=== PATIENT | female | born 1970 | race Caucasian/White ===

== ENCOUNTER → 2016-05-31 | Outpatient (CLI) | payer OTHER ==
[~2016-05-31] MED LIST: ALB.5NB20 HHN; ALBU2.5V4 IH; ALBUTEROL; AMOX-97 PO; BUDE0.253 IH; BUDE10.22 IH; CLIN300C3 PO; HYDR-3720 PO; HYDR-700 PO; HYDR1TAB66 PO
--- NOTE | 2016-05-31 18:50 | Diagnostic Imaging Report ---
EXAM: Bilateral diagnostic mammogram. The current study was also evaluated with a Computer Aided Detection (CAD) system. INDICATION: Followup retroareolar right CC view asymmetry seen previously. COMPARISON: 09/14/2015 and 02/23/2015. FINDINGS: There is global asymmetry with more dense parenchyma in the left breast in the upper outer quadrant. This is stable from multiple prior exams. Stable benign-appearing calcifications are also noted. The previously seen asymmetry is not identified on the current exam, likely from prior summation artifact with no developing mass or suspicious calcification. IMPRESSION: No mammographic evidence of malignancy. Annual screening mammogram recommended. BI-RADS 2. ACR BI-RADS Category 2: Benign findings. Result letter will be mailed to the patient. Note: At least 10% of breast cancer is not imaged by mammography. Dictated by: Dictated on workstation # [id number]
== END ==
LOC: RAD 09:23
PROVIDERS: ATTEND Nurse Practitioner Family
DX: R92.8 Other abnormal and inconclusive findings on diagnostic imaging of breast (principal)

== ENCOUNTER 2021-10-04 21:07 | Emergency (ER) | payer OTHER ==
[~2021-10-04] VITALS: Ht 172.7 cm; Wt 106.3 kg
[2021-10-04] MEDS ORDERED: FAMOTIDINE 20MG/2ML IV (PEPCID) IV STA (22:03)
--- NOTE | 2021-10-04 22:12 | ED Abdominal Pain ---
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 Patient has a difficult time keeping food down. Pain is worse upon lying down at with movement. Denies diarrhea, chest pain, shortness of breath, fever, dysuria, hematuria hematemesis. No known sick contacts. Patient has been having some acid reflux and burping and she was started on omeprazole by her PCP Allergies and Home Medications Allergies Coded Allergies: No Known Drug Allergies (Unverified , 10/27/10) Patient Home Medication List Home Medication List Reviewed: Yes Albuterol Sulf (Proventil Inh Soln) 20 Ml Nebu, 20 ML HHN, (Reported) Entered as Reported by: MARLENY BILLS on 11/21/14 1044 Albuterol Sulfate (Proventil) 0.83 Mg/Ml Solution, 0.83 MG IH, (Reported) Entered as Reported by: MARLENY BILLS on 11/21/14 1044 Hydroxyzine Hcl (Hydroxyzine 25 Mg Tablet) 25 Mg Tablet, 1-2 EACH PO Q6H PRN for ANXIETY Prescribed by: MARGARETH SEGOVIA on 11/21/14 1229 [Albuterol] , (Reported) Entered as Reported by: MARLENY BILLS on 11/21/14 1043 Review of Systems Review of Systems Constitutional: no symptoms reported EENTM: No Symptoms Reported Respiratory: No Symptoms Reported Cardiovascular: No Symptoms Reported Gastrointestinal: Abdominal Pain, Nausea, Vomiting Genitourinary: No Symptoms Reported Musculoskeletal: no symptoms reported Skin: no symptoms reported Psychiatric/Neurological: No Symptoms Reported Endocrine: No Symptoms Reported Hematologic/Lymphatic: No Symptoms Reported Past Kynknae-Klejqo-Dfnbag Hx Past Medical History Hysterectomy, Tubal Ligation Asthma [employer]ING [employer]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 oz. 98.144279fl; BMI Method:Stated General Appearance: no apparent distress HEENT: PERRL/EOMI Neck: full range of motion Respiratory: lungs clear Cardiovascular: normal peripheral pulses, regular rate, rhythm Gastrointestinal: soft, no organomegaly, tenderness (in epigastrium) Extremities: normal range of motion Back: normal inspection, no CVA tenderness Neurologic/Psychiatric: no motor/sensory deficits, alert, normal mood/affect, oriented x 3 Skin: normal color Progress/Results/Core Measures Results/Orders Lab Results Laboratory Tests Test 10/04/21 22:21 10/04/21 22:35 Range/Units White Blood Count 11.2 H 4.3-11.0 10^3/uL Red Blood Count 5.08 3.80-5.11 10^6/uL Hemoglobin 14.8 11.5-16.0 g/dL Hematocrit 45 35-52 % Mean Corpuscular Volume 88 80-99 fL Mean Corpuscular Hemoglobin 29 25-34 pg Mean Corpuscular Hemoglobin Concent 33 32-36 g/dL Red Cell Distribution Width 12.0 10.0-14.5 % Platelet Count 217 130-400 10^3/uL Mean Platelet Volume 10.4 9.0-12.2 fL Immature Granulocyte % (Auto) 0 % Neutrophils (%) (Auto) 72 42-75 % Lymphocytes (%) (Auto) 18 12-44 % Monocytes (%) (Auto) 7 0-12 % Eosinophils (%) (Auto) 3 0-10 % Basophils (%) (Auto) 0 0-10 % Neutrophils # (Auto) 8.1 H 1.8-7.8 10^3/uL Lymphocytes # (Auto) 2.0 1.0-4.0 10^3/uL Monocytes # (Auto) 0.8 0.0-1.0 10^3/uL Eosinophils # (Auto) 0.3 0.0-0.3 10^3/uL Basophils # (Auto) 0.0 0.0-0.1 10^3/uL Immature Granulocyte # (Auto) 0.0 0.0-0.1 10^3/uL Sodium Level 141 135-145 MMOL/L Potassium Level 3.7 3.6-5.0 MMOL/L Chloride Level 104 98-107 MMOL/L Carbon Dioxide Level 24 21-32 MMOL/L Anion Gap 13 5-14 MMOL/L Blood Urea Nitrogen 13 7-18 MG/DL Creatinine 0.87 0.60-1.30 MG/DL Estimat Glomerular Filtration Rate 80 BUN/Creatinine Ratio 15 Glucose Level 99 70-105 MG/DL Calcium Level 9.6 8.5-10.1 MG/DL Corrected Calcium 9.4 8.5-10.1 MG/DL Total Bilirubin 0.6 0.1-1.0 MG/DL Aspartate Amino Transf (AST/SGOT) 18 5-34 U/L Alanine Aminotransferase (ALT/SGPT) 12 0-55 U/L Alkaline Phosphatase 55 40-136 U/L Total Protein 7.1 6.4-8.2 GM/DL Albumin 4.2 3.2-4.5 GM/DL Lipase 38 8-78 U/L Urine Color YELLOW Urine Clarity CLEAR Urine pH 5.5 5-9 Urine Specific [place] 1.010 L 1.016-1.022 Urine Protein NEGATIVE NEGATIVE Urine Glucose (UA) NEGATIVE NEGATIVE Urine Ketones NEGATIVE NEGATIVE Urine Nitrite NEGATIVE NEGATIVE Urine Bilirubin NEGATIVE NEGATIVE Urine Urobilinogen 0.2 < = 1.0 MG/DL Urine Leukocyte Esterase 1+ H NEGATIVE Urine RBC (Auto) NEGATIVE NEGATIVE Urine RBC NONE /HPF Urine WBC 5-10 H /HPF Urine Squamous Epithelial Cells 2-5 /HPF Urine Crystals NONE /LPF Urine Bacteria FEW H /HPF Urine Casts NONE /LPF Urine Mucus SMALL H /LPF Urine Culture Indicated YES Urine Opiates Screen NEGATIVE NEGATIVE Urine Oxycodone Screen NEGATIVE NEGATIVE Urine Methadone Screen NEGATIVE NEGATIVE Urine Propoxyphene Screen NEGATIVE NEGATIVE Urine Barbiturates Screen NEGATIVE NEGATIVE Ur Tricyclic Antidepressants Screen NEGATIVE NEGATIVE Urine Phencyclidine Screen NEGATIVE NEGATIVE Urine Amphetamines Screen NEGATIVE NEGATIVE Urine Methamphetamines Screen NEGATIVE NEGATIVE Urine Benzodiazepines Screen NEGATIVE NEGATIVE Urine Cocaine Screen NEGATIVE NEGATIVE Urine Cannabinoids Screen NEGATIVE NEGATIVE My Orders Orders - JUSTINO LAZCANO MD Ondansetron Injection (Zofran Injectio (10/04/21 22:15) Famotidine Injection (Pepcid Injection) (10/04/21 22:03) Ed Iv/Invasive Line Start (10/04/21 22:03) Ns Iv 1000 Ml (Sodium Chloride 0.9%) (10/04/21 22:15) Comprehensive Metabolic Panel (10/04/21 22:03) Lipase (10/04/21 22:03) Ua Culture If Indicated (10/04/21 22:03) Cbc With Automated Diff (10/04/21 22:03) Ct Abdomen/Pelvis W (10/04/21 22:03) Drug Screen Stat (Urine) (10/04/21 22:06) Iohexol Injection (Omnipaque 350 Mg/Ml 1 (10/04/21 22:45) Received Contrast (Hold Metformin- Contr (10/04/21 22:45) Ns (Ivpb) (Sodium Chloride 0.9% Ivpb Bag (10/04/21 22:45) Urine Culture (10/04/21 22:35) Medications Given in ED Current Medications Medications Dose Ordered Sig/Rubi Route Start Time Stop Time Status Last Admin Dose Admin Iohexol 100 ml ONCE ONCE IV 10/04/21 22:45 10/04/21 22:46 DC 10/04/21 22:38 100 ML Ondansetron HCl 4 mg ONCE ONCE IVP 10/04/21 22:15 10/04/21 22:16 DC 10/04/21 22:38 4 MG Sodium Chloride 100 ml ONCE ONCE IV 10/04/21 22:45 10/04/21 22:46 DC 10/04/21 22:38 80 ML Vital Signs/I&O 10/04/21 22:24 Temp 36.7 Pulse 83 Resp 18 B/P (MAP) 133/102 (112) Pulse Ox 97 O2 Delivery Room Air Progress Progress Note : Progress Note 1. DIVERTICULOSIS and UTI - Labs: unremarkable - CT ABD with contrast: - UA: positive for LE+, bacteria, and WBC - UDS negative - Zofran iv/ Pepcid iv/ NS IVF bolus - Pt has Zofran at home as well as omeprazole and carafate. NSAID and tylenol prn pain - Keflex 500mg BID for 5 days - Follow-up with PCP within the next 3 to 7 days - Liquid diet and slowly advance to soft bland diet -The patient was seen in the ED, and treated appropriately to presentation at a specific point in time. Patient is informed that there is a possibility that disease and illness can evolve and change in acuity rapidly or slowly after patient is discharged from the ER. Precautionary advice given to the patient for immediate return to ER if symptoms worsen or do not resolve, and to seek emergency care sooner rather than later. Pt also advised on the importance of PCP follow up and compliance with management and follow up plan with PCP and/or specialist, as this is part of the management plan. Pt verbally expressed understanding. Diagnostic Imaging Diagonstic Imaging: CT Plain Films/CT/US/NM/MRI: abdomen Comments [facility] [place], [place] NAME: TORI GARRETT [facility] REC#: [id number] PT STATUS: REG ER : 1970 PHYSICIAN: JUSTINO LAZCANO MD ADMIT DATE: 10/04/21/ER Signed Date of Exam:10/04/21 CT ABDOMEN/PELVIS W EXAMINATION: CT abdomen and pelvis with intravenous contrast. TECHNIQUE: Multiple contiguous axial images were obtained through the abdomen and pelvis after the uneventful administration of intravenous contrast. All CT scans use one or more of the following dose optimizing techniques: automated exposure control, MA and/or KvP adjustment based on patient size and exam type or iterative reconstruction. HISTORY: Epigastric pain. Nausea and vomiting. COMPARISON: None available. FINDINGS: The heart is unremarkable. The included lung bases are clear. Scattered small areas of hypoattenuation are seen in the liver. No enhancing hepatic lesions. The portal vein is patent. The gallbladder is unremarkable. The liver, spleen, pancreas, adrenal glands, and kidneys have a normal appearance. There is no pathologically enlarged mesenteric or retroperitoneal adenopathy. The bowel loops are nondilated. Diverticuli are seen in the sigmoid colon without evidence of acute diverticulitis. The appendix is visualized in the right lower quadrant and has a normal appearance. There is no free fluid or free air. No acute osseous abnormalities. Ureters and bladder are grossly normal. Cystic focus is seen in the pelvis right of midline measuring 6.1 cm. There is no free air, loculated collection, or adenopathy in the pelvis. IMPRESSION: 1. Dominant follicle/cyst in the right adnexa. Consider follow-up in 2-3 months. 2. Diverticulosis of the sigmoid colon without evidence of acute diverticulitis. Dictated by: Dictated on workstation # [id number] Dict: 10/04/21 2237 Trans: 10/04/21 2249 [facility] [id number] Interpreted by: NGUYỄN ESTRELLA DO Electronically signed by: NGUYỄN ESTRELLA DO 10/04/21 2249 Departure Impression Primary Impression: Diverticulosis of colon without diverticulitis Additional Impression: UTI (urinary tract infection) Qualified Codes: N39.0 - Urinary tract infection, site not specified Disposition: HOME, SELF-CARE Condition: Stable Departure-Patient Inst. Referrals: REE CHONG DO (PCP/Family) Primary Care Physician Patient Instructions: Diverticulosis (DC), Urinary Tract Infections in Adults Scripts Cephalexin (Cephalexin) 500 Mg Tablet 500 MG PO BID for 5 Days, #10 TAB Prov: JUSTINO LAZCANO MD 10/04/21 JUSTINO LAZCANO MD October 04, 2021 22:12
[2021-10-04] MEDS ORDERED: ONDANSETRON 4 MG/2 ML (SDV) Z0FRAN IVP ONE (22:15)
[2021-10-04] MEDS ORDERED: NS IV 1000 ML 1,000 ML IV SCH (22:15)
[2021-10-04 22:27] LABS: BASOPHILS % (AUTO) 0 % (0-10); EOSINOPHILS # (AUTO) 0.3 10^3/uL (0.0-0.3); EOSINOPHILS % (AUTO) 3 % (0-10); HEMATOCRIT 45 % (35-52); HEMOGLOBIN 14.8 g/dL (11.5-16.0); LYMPHOCYTES % (AUTO) 18 % (12-44); MEAN CORPUSCULAR HEMOGLOBIN 29 pg (25-34); MEAN CORPUSCULAR HGB CONC 33 g/dL (32-36); MEAN CORPUSCULAR VOLUME 88 fL (80-99); MEAN PLATELET VOLUME 10.4 fL (9.0-12.2); MONOCYTES # (AUTO) 0.8 10^3/uL (0.0-1.0); MONOCYTES % (AUTO) 7 % (0-12); NEUTROPHILS # (AUTO) 8.1 10^3/uL (1.8-7.8); NEUTROPHILS % (AUTO) 72 % (42-75); PLATELET COUNT 217 10^3/uL (130-400); WHITE BLOOD COUNT 11.2 10^3/uL (4.3-11.0)
[2021-10-04 22:37] LABS: ALBUMIN 4.2 GM/DL (3.2-4.5); POTASSIUM 3.7 MMOL/L (3.6-5.0)
[2021-10-04 22:38] LABS: CALCIUM 9.6 MG/DL (8.5-10.1)
[2021-10-04 22:40] LABS: TOTAL PROTEIN 7.1 GM/DL (6.4-8.2)
[2021-10-04 22:41] LABS: BILIRUBIN,TOTAL 0.6 MG/DL (0.1-1.0)
[2021-10-04 22:43] LABS: CREATININE SERUM 0.87 MG/DL (0.60-1.30)
[2021-10-04 22:45] LABS: BILIRUBIN,URINE NEGATIVE (NEGATIVE); CLARITY,URINE CLEAR; COLOR,URINE YELLOW; GLUCOSE, URINE (UA) NEGATIVE (NEGATIVE); KETONES,URINE NEGATIVE (NEGATIVE); LEUKOCYTE ESTERASE ,URINE 1+ (NEGATIVE); NITRITE,URINE NEGATIVE (NEGATIVE); PH,URINE 5.5 (5-9); PROTEIN,URINE NEGATIVE (NEGATIVE)
[2021-10-04] MEDS ORDERED: NS 100 ML (IVPB) BAG IV ONE (22:45)
[2021-10-04] MEDS ORDERED: IOHEXOL 350 MG/ML 100 ML (OMNIPAQUE 350) VIAL IV ONE (22:45)
[2021-10-04] MEDS ORDERED: HOLD METFORMIN - RECEIVED CONTRAST 20 ML VIAL IV SCH (22:45)
--- NOTE | 2021-10-04 22:51 | Diagnostic Imaging Report ---
EXAMINATION: CT abdomen and pelvis with intravenous contrast. TECHNIQUE: Multiple contiguous axial images were obtained through the abdomen and pelvis after the uneventful administration of intravenous contrast. All CT scans use one or more of the following dose optimizing techniques: automated exposure control, MA and/or KvP adjustment based on patient size and exam type or iterative reconstruction. HISTORY: Epigastric pain. Nausea and vomiting. COMPARISON: None available. FINDINGS: The heart is unremarkable. The included lung bases are clear. Scattered small areas of hypoattenuation are seen in the liver. No enhancing hepatic lesions. The portal vein is patent. The gallbladder is unremarkable. The liver, spleen, pancreas, adrenal glands, and kidneys have a normal appearance. There is no pathologically enlarged mesenteric or retroperitoneal adenopathy. The bowel loops are nondilated. Diverticuli are seen in the sigmoid colon without evidence of acute diverticulitis. The appendix is visualized in the right lower quadrant and has a normal appearance. There is no free fluid or free air. No acute osseous abnormalities. Ureters and bladder are grossly normal. Cystic focus is seen in the pelvis right of midline measuring 6.1 cm. There is no free air, loculated collection, or adenopathy in the pelvis. IMPRESSION: 1. Dominant follicle/cyst in the right adnexa. Consider follow-up in 2-3 months. 2. Diverticulosis of the sigmoid colon without evidence of acute diverticulitis. Dictated by: Dictated on workstation # [id number]
[2021-10-04 22:53] LABS: BACTERIA,URINE FEW /HPF
[2021-10-04 22:55] LABS: AMPHETAMINE SCREEN, URINE NEGATIVE (NEGATIVE); BARBITURATE SCREEN URINE NEGATIVE (NEGATIVE); BENZODIAZEPINES SCREEN URINE NEGATIVE (NEGATIVE); CANNABINOID SCREEN, URINE NEGATIVE (NEGATIVE); COCAINE SCREEN URINE NEGATIVE (NEGATIVE); METHADONE STAT NEGATIVE (NEGATIVE); OPIATE SCREEN URINE NEGATIVE (NEGATIVE); OXYCODONE STAT NEGATIVE (NEGATIVE); PROPOXYPHENE STAT NEGATIVE (NEGATIVE); TRICYCLIC ANTIDEPRESSANTS SCRE NEGATIVE (NEGATIVE)
[2021-10-04] MEDS ORDERED: CEPH500T PO (23:30)
[2021-10-04] MEDS ORDERED: cefTRIAXone 1 GM PRE-MIX 50 ML IV STA (23:32)
[2021-10-04 23:45] VITALS: BP 120/84
== END 2021-10-04 23:44 | disposition home or self-care (01) ==
LOC: EDUNIT# 21:07 → ER 21:10
DX: K57.30 Diverticulosis of large intestine without perforation or abscess without bleeding (principal); N39.0 Urinary tract infection, site not specified; K21.9 Gastro-esophageal reflux disease without esophagitis; Z90.710 Acquired absence of both cervix and uterus; Z79.899 Other long term (current) drug therapy
CPT/HCPCS: 36415; 74177; 80053; 80306; 81000; 83690; 85025; 87088